=== PATIENT | male | born 1960 | race Asian ===

== ENCOUNTER 2022-07-18 12:52 | Emergency (ER) | payer OTHER ==
[~2022-07-18] VITALS: Ht 170.2 cm; Wt 68.2 kg
[2022-07-18] MEDS ORDERED: FENO43CA8 PO (12:58)
[2022-07-18] MEDS ORDERED: ATOR40TA28 PO (12:58)
[2022-07-18] MEDS ORDERED: INSU100V37 SQ (12:58)
[2022-07-18] MEDS ORDERED: SODI5POW3 PO (12:58)
[2022-07-18] MEDS ORDERED: VALS40TA4 PO (12:58)
[2022-07-18] MEDS ORDERED: ISON300 PO (12:58)
[2022-07-18] MEDS ORDERED: AMLO-258 PO (12:58)
[2022-07-18] MEDS ORDERED: ASPI81TA87 PO (12:58)
[2022-07-18] MEDS ORDERED: GLIP10TA10 PO (12:58)
[2022-07-18] MEDS ORDERED: DULA1.5P SQ (12:58)
[2022-07-18] MEDS ORDERED: PYRI-14 PO (12:58)
[2022-07-18] MEDS ORDERED: FENO48TA10 PO (14:42)
[2022-07-18] MEDS ORDERED: SODIUM CHLORIDE 0.9% 1,000 ML IV ONE (14:45)
[2022-07-18 15:16] LABS: BASOPHILS % (AUTO) 0.8 % (0.0-2.0); EOSINOPHILS % (AUTO) 2.7 % (1.0-6.0); HEMATOCRIT 34.2 % (41-53); LYMPHOCYTES # (AUTO) 2.3 K/uL (1.0-4.8); LYMPHOCYTES % (AUTO) 29.8 % (22.0-44.0); MEAN CORPUSCULAR HEMOGLOBIN 28.8 pg (26.0-34.0); MEAN CORPUSCULAR HGB CONC 32.1 G/dL (31.0-37.0); MEAN CORPUSCULAR VOLUME 90 fL (80-100); MONOCYTES # (AUTO) 0.8 K/uL (0.1-1.0); MONOCYTES % (AUTO) 10.5 % (2.0-9.0); NEUTROPHILS # (AUTO) 4.3 K/uL (1.8-7.7); NEUTROPHILS % (AUTO) 56.2 % (40.0-70.0); PLATELET COUNT (AUTO) 274 K/uL (150-450); RED BLOOD CELL COUNT(AUTO) 3.82 MIL/uL (4.50-5.90); RED CELL DISTRIBUTION WIDTH 14.8 % (11.5-14.5)
[2022-07-18 15:29] LABS: CALCIUM, TOTAL 9.4 mg/dL (8.8-10.5); CREATININE 3.83 mg/dL (0.60-1.30); POTASSIUM 4.2 mmol/L (3.5-5.1)
[2022-07-18 15:36] LABS: ALBUMIN 3.7 g/dL (3.4-5.0); BILIRUBIN,TOTAL 0.2 mg/dL (0.1-1.0); MAGNESIUM 2.3 mg/dL (1.80-2.40); TOTAL PROTEIN, SERUM 7.6 g/dL (6.4-8.2)
[2022-07-18 16:15] LABS: COVID AG,FIA SOURCE NASOPHARYNGEAL
[2022-07-18 17:30] VITALS: BP 146/79
== END 2022-07-18 17:47 | disposition home or self-care (01) ==
LOC: EMS 13:00
DX: R53.1 Weakness (principal); E11.9 Type 2 diabetes mellitus without complications; I10 Essential (primary) hypertension; Z20.822 Contact with and (suspected) exposure to COVID-19
CPT/HCPCS: 70450; 71045; 80053; 82962; 83735; 85025; 93005; 96360; 99285; 36415-L1; 36415-TC